=== PATIENT | male | born 2000 | race Caucasian/White ===

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

== ENCOUNTER 2019-04-11 20:30 | Emergency (ER) | payer BC ==
[~2019-04-11] VITALS: Ht 167.6 cm; Wt 63.0 kg
[2019-04-11 20:38] VITALS: BP 157/87
--- NOTE | 2019-04-11 20:55 | NUR ---
18 Y/O MALE PRESENTS TO ED, C/O OF LACERATION ON LEFT MIDDLE AND POINTER FINGER. LACERATION IS APPROXIMATELY 1.3CM ON MIDDLE FINGER AND 0.8CM ON POINTER FINGER. PT STATES ACCIDENTALLY CUTTING SELF USING A BLADE. C/O OF PAIN 5/10, STATES HE FEELS A MILD NUMBNESS AROUND LACERATION. PT DENIES TAKING ANY MEDICATIONS FOR PAIN. PT VSS. ERMD AWARE. WILL CONTINUE TO MONITOR.
[2019-04-11] MEDS ORDERED: LIDOCAINE MPF 1% 10 MG/ML VIAL INJ ONE (21:20)
[2019-04-11] MEDS ORDERED: BUPIVACAINE-MPF 0.5% 30 ML VIAL INJ ONE ×2 (21:20→21:30)
[2019-04-11] MEDS ORDERED: LIDOCAINE MPF 1% 5 ML ONE (21:24)
--- NOTE | 2019-04-11 21:55 | NUR ---
X-Ray at bedside.
--- NOTE | 2019-04-11 23:34 | NUR ---
ASSISTED DR EASTON WITH DERMA WELDON ON 3RD FINGER DIGIT
--- NOTE | 2019-04-11 23:35 | NUR ---
PT WOUND ON FINGER COVERED WITH NON ADHERENT DRESSING AND WRAPPED WITH MARCO WRAP AND FINGER SPLINT PER DR HOUSTON INSTRUCTIONS
[2019-04-11 23:44] VITALS: BP 157/87
--- NOTE | 2019-04-11 23:44 | NUR ---
PT DISCHARGED WITH PAPERWORK. RX MONO GRAY. EDUCATED PT REGARDING MEDICATION AND S/E. EDUCATED PT REGARDING D/C DIAGNOSIS AND INSTRUCTIONS. PT VERBALIZED UNDERSTANDING OF TEACHING. SPLINT PROVIDED AROUND AFFECTED FINGERS. TOLD PT TO FOLLOW UP WITH PCP AND WHEN TO RETURN TO ED. PT VSS. ALL QUESTIONS ANSWERED.
== END 2019-04-11 23:44 | disposition home or self-care (01) ==
LOC: MED 20:30
DX: S61.211A Laceration without foreign body of left index finger without damage to nail, initial encounter (principal); S61.213A Laceration without foreign body of left middle finger without damage to nail, initial encounter; W26.8XXA Contact with other sharp object(s), not elsewhere classified, initial encounter; Y93.89 Activity, other specified; Y92.89 Other specified places as the place of occurrence of the external cause; Y99.8 Other external cause status
CPT/HCPCS: 12002; 73140; 99283; J2001; J3490; Q0092